=== PATIENT | female | born 1945 | race Caucasian/White ===

== ENCOUNTER 2021-05-09 09:53 | Inpatient (IN) | payer MEDICAID, MEDICARE ==
[2021-05-09] VITALS (10 sets, daily range): BP systolic 116–154; BP diastolic 57–89
[~2021-05-09] VITALS: Ht 162.6 cm; Wt 69.4 kg
--- NOTE | 2021-05-09 10:30 | NUR ---
Patient received via gurney assisted by EMS and was a direct admit to ICU. Patient is alert and oriented, breathing even and unlabored. No c/o pain or discomfort. Patient's tele monitor attached upon arrival. Assesments done and documented. Per Paramedics report patient is non compliant with medications and refuses. Noted with right forearm 2 iv access sites of 20 gauze and 18 gauze saline lock and flushed well. Patient admitted for left heart cardiac cath placement per report. Consent for procedure is already in chart. Patient's consents obtained for blood transfusion, anesthesia. Allergies and code status documented.
--- NOTE | 2021-05-09 12:30 | NUR ---
OR staff removed one of the iv access to right arm 18 gauze and inserted new iv to left forearm 20 gauze.
[2021-05-09] MEDS ORDERED: IODIXANOL 150 ML IV ONE (12:37)
[2021-05-09] MEDS ORDERED: LIDOCAINE HCL/MPF 1% 30 ML VIAL IJ ONE (12:37)
[2021-05-09] MEDS ORDERED: IV SET PRIMARY PUMP SET 1 EA INFUS.SET MC ONE (12:43)
[2021-05-09] MEDS ORDERED: IV NS 0.9% 1,000 ML ONE (12:43)
--- NOTE | 2021-05-09 13:10 | NUR ---
Patient transferred by OR staff for the procedure at apprx 12:55 pm. Patient is in good stable condition. No c/o chest pain. No nausea and vomiting noted.
[2021-05-09] MEDS ORDERED: NITROGLYCERIN IN 5 % DEXTROSE 250 ML IV ONE (13:29)
[2021-05-09] MEDS ORDERED: FENTANYL PF 100MCG/2ML AMPUL ONE (13:35)
[2021-05-09] MEDS ORDERED: MIDAZOLAM HCL 2 MG/2ML VIAL ONE (13:35)
[2021-05-09] MEDS ORDERED: NICARDIPINE HCL 25 MG/10 ML VIAL IV ONE (13:43)
[2021-05-09] MEDS ORDERED: CLOPIDOGREL BISULFATE 75 MG TABLET PO SCH (14:00)
[2021-05-09] MEDS ORDERED: LOSARTAN POTASSIUM 25 MG TABLET PO SCH (14:30)
--- NOTE | 2021-05-09 14:30 | NUR ---
Patient came back from OR at 1425. Assessments done. No c/o pain or discomfort. Righte femoral access site free of s/s of bleeding. Vitals WNL. Patient will be monitored.
[2021-05-09] MEDS ORDERED: IV NS 0.9% 500 ML IV ONE (15:00)
--- NOTE | 2021-05-09 15:00 | NUR ---
Patient given post op ordered meds and iv normal saline initiated and running at 100 cc/hour x 4 hours. Patient refused losartan and MD Rubio made aware.
[2021-05-09] MEDS ORDERED: ATOR40TA PO (15:34)
[2021-05-09] MEDS ORDERED: INSU100V3 SQ (15:34)
[2021-05-09] MEDS ORDERED: BLOO-668 IN (15:34)
[2021-05-09] MEDS ORDERED: ALLA266C2 TP (15:34)
[2021-05-09] MEDS ORDERED: ENOX40DI SQ (15:34)
[2021-05-09] MEDS ORDERED: ONDA4VIA52 IV (15:34)
[2021-05-09] MEDS ORDERED: MAGN400O6 PO (15:34)
[2021-05-09] MEDS ORDERED: ASPI-869 PO (15:34)
[2021-05-09] MEDS ORDERED: ACET-868 PO (15:34)
[2021-05-09] MEDS ORDERED: PANT40VI IV (15:34)
[2021-05-09] MEDS ORDERED: DEXT50DI8 IV (15:34)
[2021-05-09] MEDS ORDERED: METO25TA20 PO (15:34)
--- NOTE | 2021-05-09 17:00 | NUR ---
Patient refused to leave the facility to go back to [facility]. Patient stated that she is leaving AMA and not staying. Patient explained the risks of leaving [facility] and along with bleeding complications to the femoral access site. Patient still refused and requested MD to fill her prescription. MD silva made aware and informed and informed ticket writer that he will call in to her Pharmacy of choice. Details provided.
--- NOTE | 2021-05-09 19:20 | NUR ---
Patient left the facility AMA at apprx 1910 with her nephew in private car. Patient in good stable condition and provided hospital stay information.
[2021-05-10] MEDS ORDERED: ASPIRIN 81 MG TAB.CHEW PO SCH (09:00)
== END 2021-05-09 19:10 | disposition left against medical advice (07) | DRG 282 ==
LOC: EDSTATUS 10:47 → ICU 10:52
PROVIDERS: ADMIT Internal Medicine; ATTEND Internal Medicine
PROC: 4A023N7 Measurement of Cardiac Sampling and Pressure, Left Heart, Percutaneous Approach (ICD-10-PCS; principal; 2021-05-09)
PROC: B211YZZ Fluoroscopy of Multiple Coronary Arteries using Other Contrast (ICD-10-PCS; 2021-05-09)
PROC: B215YZZ Fluoroscopy of Left Heart using Other Contrast (ICD-10-PCS; 2021-05-09)
PROC: B41FYZZ Fluoroscopy of Right Lower Extremity Arteries using Other Contrast (ICD-10-PCS; 2021-05-09)
DX: I25.10 Atherosclerotic heart disease of native coronary artery without angina pectoris (principal); I21.A1 Myocardial infarction type 2; I10 Essential (primary) hypertension; Z79.899 Other long term (current) drug therapy; E11.9 Type 2 diabetes mellitus without complications; Z88.1 Allergy status to other antibiotic agents; Z88.0 Allergy status to penicillin; E87.70 Fluid overload, unspecified
CPT/HCPCS: 82962-TC; C1887; C1894; G0378; G0500; J1644; J2250; J3010; J3490; J7030; J7040; Q9967